=== PATIENT | male | born 1970 | race Caucasian/White ===

== ENCOUNTER 2020-03-21 10:27 | Emergency (ER) | payer MEDICAID ==
[~2020-03-21] VITALS: Ht 170.2 cm; Wt 61.4 kg
[2020-03-21 10:36] VITALS: BP 120/83
[2020-03-21] MEDS ORDERED: DOXY100C77 PO (10:44)
== END 2020-03-21 10:47 | disposition home or self-care (01) ==
LOC: ER 10:27
DX: F15.10 Other stimulant abuse, uncomplicated (principal); F31.9 Bipolar disorder, unspecified; L98.9 Disorder of the skin and subcutaneous tissue, unspecified; Z88.2 Allergy status to sulfonamides
CPT/HCPCS: 99283

== ENCOUNTER 2020-03-27 16:41 | Emergency (ER) | payer MEDICAID ==
[~2020-03-27 16:41] MED LIST: DOXY100C77 PO
--- NOTE | 2020-03-27 16:46 | NUR ---
Before triage was completed the patient became hostile by yelling, threatening staff, and demanding a phone to speak to his fiance would not allow vitals to be completed by removing all of the monitoring equipment. Several attempts by several staff to get the patient to de-escalate and stay unsuccessfully. [employer] called due to the patient's statement of drinking a pint of vokda shortly before arrival and appearance of intoxication.
== END 2020-03-27 16:53 | disposition left against medical advice (07) ==
LOC: ER 16:41
DX: F10.129 Alcohol abuse with intoxication, unspecified (principal); F32.9 Major depressive disorder, single episode, unspecified; F20.9 Schizophrenia, unspecified; F12.10 Cannabis abuse, uncomplicated; Z88.2 Allergy status to sulfonamides; W19.XXXA Unspecified fall, initial encounter; Y93.89 Activity, other specified; Y92.89 Other specified places as the place of occurrence of the external cause; Y99.8 Other external cause status; Y90.9 Presence of alcohol in blood, level not specified
CPT/HCPCS: 99283